=== PATIENT | female | born 1930 | race Caucasian/White ===

== ENCOUNTER 2017-06-18 01:06 | Outpatient (CLI) | payer OTHER ==
[2014-12-05 20:24] VITALS: BMI 20.5
== END 2017-06-18 01:07 | disposition home or self-care (01) ==
LOC: AMBL 01:06
PROVIDERS: ATTEND Emergency Medicine
DX: R10.9 Unspecified abdominal pain (principal); R11.0 Nausea; I48.91 Unspecified atrial fibrillation